=== PATIENT | male | born 1960 | race Caucasian/White ===

== ENCOUNTER 2023-11-23 10:49 | Emergency (ER) | payer BC, SELFPAY ==
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
[2023-11-23 10:50] VITALS: BP 189/97; PULSE 91; RESP 20; TEMP 36.8; O2SAT 97
[2023-11-23 10:58] VITALS: BP 175/77
--- NOTE | 2023-11-23 11:02 | ECG_ITS ---
Test Date: 2023-11-23 11:05:22 Measurements Intervals [place] Rate: 108 P: 32 TX: 169 QRS: 24 QRSD: 88 T: 63 QT: 325 QTc: 437 Interpretive Statements SINUS TACHYCARDIA WITH FREQUENT PACS NONSPECIFIC ST & T-WAVE ABNORMALITY ABNORMAL ECG ABNORMAL RHYTHM ECG No previous ECG available for comparison Electronically Signed On 11-23-2023 17:56:31 CDT by Shar Aguero M.D.
[2023-11-23 11:23] LABS: Basophils Percent Auto 0.4 % (0.2-1.2); Eosinophils Absolute Auto 0.2 K/mm3 (0-0.3); Eosinophils Percent Auto 1.8 % (0-4.4); Hematocrit 48.1 % (42.0-52.0); Immature Granulocyte Absolute 0.03 K/mm3 (0.00-0.031); Immature Granulocyte Percent A 0.3 % (0-0.5); Lymphocytes Absolute Auto 1.52 K/mm3 (0.9-3.2); Lymphocytes Percent Auto 16.5 % (18.3-44.2); Mean Corpuscular HGB Conc 35.3 g/dl (32-36); Mean Corpuscular Hemoglobin 32.1 pg (26-34); Mean Corpuscular Volume 90.8 fl (80-100); Mean Platelet Volume 9.2 fl (7.4-10.4); Monocytes Absolute Auto 0.6 K/mm3 (0.1-0.6); Monocytes Percent Auto 6.6 % (2.6-8.5); Neutrophils Absolute Auto 6.9 K/mm3 (1.3-6.7); Neutrophils Percent Auto 74.4 % (45.5-73.1); Platelet Count Result 290 k/mm3 (150-375); Red Cell Distribution Width 12.8 % (11.5-14.5); White Blood Count 9.2 K/mm3 (4.5-10.0)
[2023-11-23 11:34] LABS: Partial Thromboplastin Time 26.7 Seconds (22.3-36.8)
[2023-11-23 11:46] LABS: Alanine Aminotransferase 36 U/L (6-50); Albumin Level 4.1 g/dL (3.5-5.1); Alkaline Phosphatase 66 U/L (38-126); Anion Gap 12 mmol/L (4-12); Aspartate Amino Transferase 41 U/L (17-59); Bilirubin,Total 0.7 mg/dL (0.2-1.3); Blood Urea Nitrogen 23 mg/dL (9-20); Carbon Dioxide 23 mmol/L (22-30); Chloride 102 mmol/L (98-107); Estimated CRCL calculation 78 ml/min; Estimated Glomerular Filt Rate 56; Glucose 187 mg/dL (65-110); Lipase 161 U/L (23-300); Sodium 137 mmol/L (137-145)
[2023-11-23 11:57] LABS: Troponin I 0.014 ng/mL (0.000-0.034)
--- NOTE | 2023-11-23 12:22 | ED.WOUNDLAC ---
HPI - Wound/Laceration General Chief Complaint: Recheck/Abnormal Lab/Rx Stated Complaint: high blood pressure Time Seen by Provider: 11/23/23 12:23 Related Data Allergies Allergy/AdvReac Type Severity Reaction Status Date / Time No Known Allergies Allergy Verified 11/23/23 10:50 Course Vital Signs Vital signs: Vital Signs Temperature 98.2 F 11/23/23 10:50 Pulse Rate 91 11/23/23 10:50 Respiratory Rate 20 11/23/23 10:50 Blood Pressure 189/97 H 11/23/23 10:50 Pulse Oximetry 97 11/23/23 10:50 Oxygen Delivery Room Air 11/23/23 10:50 Temperature 98.2 F 11/23/23 10:50 Pulse Rate 91 11/23/23 10:50 Respiratory Rate 20 11/23/23 10:50 Blood Pressure 175/77 H 11/23/23 10:58 Pulse Oximetry 97 11/23/23 10:50 Oxygen Delivery Room Air 11/23/23 10:50 MDM - Wound/Laceration Lab Data 11/23/23 11:14 11/23/23 11:14 Labs: Lab Results 11/23/23 Range/Units 11:14 WBC 9.2 (4.5-10.0) K/mm3 RBC 5.30 (4.6-6.20) M/mm3 Hgb 17.0 (14.0-18.0) g/dL Hct 48.1 (42.0-52.0) % MCV 90.8 (80-100) fl MCH 32.1 (26-34) pg MCHC 35.3 (32-36) g/dl RDW 12.8 (11.5-14.5) % Plt Count 290 (150-375) k/mm3 MPV 9.2 (7.4-10.4) fl Immature Gran % (Auto) 0.3 (0-0.5) % Neut % (Auto) 74.4 H (45.5-73.1) % Lymph % (Auto) 16.5 L (18.3-44.2) % [place] % (Auto) 6.6 (2.6-8.5) % Eos % (Auto) 1.8 (0-4.4) % Baso % (Auto) 0.4 (0.2-1.2) % Lymph # (Auto) 1.52 (0.9-3.2) K/mm3 [place] # (Auto) 0.6 (0.1-0.6) K/mm3 Eos # (Auto) 0.2 (0-0.3) K/mm3 Baso # (Auto) 0.0 (0.0-0.1) K/mm3 Abs Immat Gran (auto) 0.03 (0.00-0.031) K/mm3 Absolute Neuts (auto) 6.9 H (1.3-6.7) K/mm3 Absolute Nucleated RBC 0.000 (0.0-0.012) K/mm3 Nucleated RBC % 0.0 (0.0-0.2) % PT 14.0 (11.1-14.7) Seconds INR 1.0 APTT 26.7 (22.3-36.8) Seconds Sodium 137 (137-145) mmol/L Potassium 4.0 (3.4-5.0) mmol/L Chloride 102 (98-107) mmol/L Carbon Dioxide 23 (22-30) mmol/L Anion Gap 12 (4-12) mmol/L BUN 23 H (9-20) mg/dL Creatinine 1.30 (0.7-1.3) mg/dL Estim Creat Clear Calc 78 ml/min Estimated GFR 56 L (59 - ) Glucose 187 H (65-110) mg/dL Calcium 9.0 (8.4-10.2) mg/dL Total Bilirubin 0.7 (0.2-1.3) mg/dL AST 41 (17-59) U/L ALT 36 (6-50) U/L Alkaline Phosphatase 66 (38-126) U/L Troponin I 0.014 (0.000-0.034) ng/mL Total Protein 8.0 (6.3-8.2) g/dL Albumin 4.1 (3.5-5.1) g/dL Lipase 161 (23-300) U/L Discharge Plan Discharge Follow-up/Referrals: Sylvester,Mahamed Guzmán MD [Primary Care Provider] -
--- NOTE | 2023-11-23 13:58 | ED.RECABL ---
HPI - Recheck/Abnormal Lab/Rx General Chief Complaint: Recheck/Abnormal Lab/Rx Stated Complaint: high blood pressure Time Seen by Provider: 11/23/23 12:23 History of Present Illness HPI narrative: 63-year-old male presenting with hypertension. Patient's is at bedside and helps with the history. States that he had a physical a couple months ago and was told his blood pressures were high. He never did anything about this until his made him come in today to be evaluated. He denies any complaints. Related Data Allergies Allergy/AdvReac Type Severity Reaction Status Date / Time No Known Allergies Allergy Verified 11/23/23 10:50 Review of Systems Review of Systems: All systems reviewed & are unremarkable except as noted in HPI and below Exam Narrative: GENERAL: Well-appearing, in no acute distress, pleasant cooperative HEAD: Normocephalic, atraumatic. EYES: PERRLA and EOMI. ENT: grossly unremarkable NECK: Supple. CHEST:No respiratory distress. HEART: Regular rate and rhythm ABDOMEN: nondistended EXTREMITIES: Normal range of motion SKIN: Warm, dry, no rash. NEURO: No focal deficits. Alert and oriented x3. PSYCH: Normal mood and affect. Course Vital Signs Vital signs: Vital Signs Temperature 98.2 F 11/23/23 10:50 Pulse Rate 91 11/23/23 10:50 Respiratory Rate 20 11/23/23 10:50 Blood Pressure 189/97 H 11/23/23 10:50 Pulse Oximetry 97 11/23/23 10:50 Oxygen Delivery Room Air 11/23/23 10:50 Temperature 98.2 F 11/23/23 10:50 Pulse Rate 93 11/23/23 14:02 Respiratory Rate 16 11/23/23 14:02 Blood Pressure 179/96 H 11/23/23 14:02 Pulse Oximetry 96 11/23/23 14:02 Oxygen Delivery Room Air 11/23/23 10:50 MDM - Recheck/Abnormal Lab/Rx MDM Narrative Medical decision making narrative: 63-year-old male presenting with asymptomatic hypertension. Patient is hypertensive, blood pressures are 170s to 190s systolic. Blood work obtained from triage shows no acute abnormalities. No evidence of acute renal failure. chest x-ray without acute abnormalities. He denies any complaints. He is safe for outpatient management. Will start him on daily amlodipine and strongly advised that he call primary care today to get follow-up. Strict return precautions given. He and his were agreeable with this plan. Discharged in stable condition. Differential Diagnosis Differential diagnosis: Likely other ( Asymptomatic hypertension) Medical Records Attestation: I reviewed the patient's medical records. Lab Data Attestation: I reviewed the patient's lab results. 11/23/23 11:14 11/23/23 11:14 Labs: Lab Results 11/23/23 Range/Units 11:14 WBC 9.2 (4.5-10.0) K/mm3 RBC 5.30 (4.6-6.20) M/mm3 Hgb 17.0 (14.0-18.0) g/dL Hct 48.1 (42.0-52.0) % MCV 90.8 (80-100) fl MCH 32.1 (26-34) pg MCHC 35.3 (32-36) g/dl RDW 12.8 (11.5-14.5) % Plt Count 290 (150-375) k/mm3 MPV 9.2 (7.4-10.4) fl Immature Gran % (Auto) 0.3 (0-0.5) % Neut % (Auto) 74.4 H (45.5-73.1) % Lymph % (Auto) 16.5 L (18.3-44.2) % [place] % (Auto) 6.6 (2.6-8.5) % Eos % (Auto) 1.8 (0-4.4) % Baso % (Auto) 0.4 (0.2-1.2) % Lymph # (Auto) 1.52 (0.9-3.2) K/mm3 [place] # (Auto) 0.6 (0.1-0.6) K/mm3 Eos # (Auto) 0.2 (0-0.3) K/mm3 Baso # (Auto) 0.0 (0.0-0.1) K/mm3 Abs Immat Gran (auto) 0.03 (0.00-0.031) K/mm3 Absolute Neuts (auto) 6.9 H (1.3-6.7) K/mm3 Absolute Nucleated RBC 0.000 (0.0-0.012) K/mm3 Nucleated RBC % 0.0 (0.0-0.2) % PT 14.0 (11.1-14.7) Seconds INR 1.0 APTT 26.7 (22.3-36.8) Seconds Sodium 137 (137-145) mmol/L Potassium 4.0 (3.4-5.0) mmol/L Chloride 102 (98-107) mmol/L Carbon Dioxide 23 (22-30) mmol/L Anion Gap 12 (4-12) mmol/L BUN 23 H (9-20) mg/dL Creatinine 1.30 (0.7-1.3) mg/dL Estim Creat Clear Calc 78 ml/min Estimated GFR 56 L (59 - ) Glucose 187 H (65-110) mg/dL Calcium 9.0
[2023-11-23 14:02] VITALS: BP 179/96; PULSE 93; RESP 16; O2SAT 96
== END 2023-11-23 14:24 | disposition home or self-care (01) ==
LOC: ANHED 14:16
PROVIDERS: Registered Nurse; Emergency Provider Emergency Medicine; PCP Internal Medicine
DX: I10 Essential (primary) hypertension (principal); R00.0 Tachycardia, unspecified; R94.31 Abnormal electrocardiogram [ECG] [EKG]
CPT/HCPCS: 36415; 71046; 80053; 83690; 84484; 85025; 85610; 85730; 93005; 99284